=== PATIENT | male | born 1950 | race Caucasian/White ===

== ENCOUNTER → 2018-03-19 15:35 | Outpatient (CLI) | payer MEDICARE, OTHER, SELFPAY ==
--- NOTE | 2018-03-19 | DI.RAD.S_ITS ---
PROCEDURE: XR LUMBAR SPINE 2-3V INDICATIONS: LOW BACK PAIN TECHNIQUE: 2 views of the lumbar spine were acquired. COMPARISON: Located Within [facility], MR, L-SPINE WITHOUT CONTRAST, 11/22/2017, 17:24. FINDINGS: Bones: 5 [id number] vertebrae are present. Mild levoscoliosis. Prior multilevel laminectomy. Grade 1 spondylolisthesis L3-L4 and L4-L5. Multilevel disc degeneration, most notably on moderate at the L5-S1 level. Moderate lower lumbar spine facet joint arthropathy.. No vertebral body compression fractures. No suspicious bony lesions. Soft tissues: Overlying bowel gas pattern is normal. No suspicious soft tissue calcifications. Vascular calcifications indicate atherosclerosis. IMPRESSION: Multilevel degenerative change within the lumbar spine. Dictated by: Erik HEARD Interpreted: Bisi Leblanc MD on 03/19/2018 at 16:00 Approved by: Bisi Leblanc M.D. on 03/19/2018 at 17:11
== END ==
PROVIDERS: Family Provider Family Medicine; PCP Family Medicine; Visit Provider Physician Assistant
DX: M51.37 Other intervertebral disc degeneration, lumbosacral region (principal); M41.9 Scoliosis, unspecified; M43.16 Spondylolisthesis, lumbar region
CPT/HCPCS: 72100

== ENCOUNTER → 2018-11-27 13:14 | Outpatient (REF) | payer MEDICARE, OTHER, SELFPAY ==
[2018-11-27 13:41] LABS: Influenza A and B by PCR Rapid Negative (Negative)
== END ==
LOC: LAB 13:14
PROVIDERS: Family Provider Family Medicine; PCP Family Medicine; Visit Provider Nurse Practitioner Family
DX: R05 Cough (principal)
CPT/HCPCS: 87400

== ENCOUNTER → 2019-03-20 10:12 | Outpatient (CLI) | payer MEDICARE, OTHER, SELFPAY ==
--- NOTE | 2019-03-20 | DI.US.S_ITS ---
PROCEDURE: US ABD AORTA ANEURYSM SCREEN INDICATIONS: ABDOMINAL AORTIC ANEURYSM SCREENING TECHNIQUE: Real time scanning was performed of the aorta and iliac arteries, with image documentation. COMPARISON: [facility], , L-SPINE WITHOUT CONTRAST, 11/22/2017, 17:24. FINDINGS: Aorta: Proximal aortic diameter measures 2.9 cm. Mid-aorta measures 2.7 cm. Distal aortic diameter is 2.2 cm. Mild aortic atherosclerosis is present. Iliac arteries: Right common iliac artery measures 1.6 cm. Left common iliac artery measures 1.6 cm. IMPRESSION: 1. Upper normal sized proximal abdominal aorta without evidence of marjorie aneurysm. 2. Aortic atherosclerosis. Dictated by: Sagar Ervin M.D. on 03/20/2019 at 11:35 Approved by: Sagar Ervin M.D. on 03/20/2019 at 11:37
== END ==
PROVIDERS: Family Provider Family Medicine; PCP Family Medicine; Visit Provider Nurse Practitioner Family
DX: I70.0 Atherosclerosis of aorta (principal)
CPT/HCPCS: 76706

== ENCOUNTER → 2019-04-16 05:59 | Outpatient (CLI) | payer MEDICARE, OTHER, SELFPAY ==
--- NOTE | 2019-04-16 | DI.MRI.S_ITS ---
PROCEDURE: MR LUMBAR SPINE WO CON INDICATIONS: Low back pain TECHNIQUE: Noncontrast sagittal T1 spin echo and T2 fast echo, sagittal STIR, axial T1 and T2 fast spin echo through the lumbar spine. In cases with scoliosis, additional coronal T2 fast spin echo may be performed. COMPARISON: [facility], MR, L-SPINE W&WO CONTRAST, 10/28/2014, 18:16. [facility], CR, XR LUMBAR SPINE 2-3V, 03/19/2018, 15:19. [facility], CR, XR LUMBAR SPINE 2 OR 3 VIEWS, 11/14/2017, 13:18. FINDINGS: Image quality: Excellent. Alignment and Curvature: There is mild L3-L4 and L4-L5 anterolisthesis. There is mild L2-L3 retrolisthesis. There is trace L5-S1 retrolisthesis. Bones: Postsurgical changes compatible with go to-L5 laminectomies. Reactive endplate change is noted adjacent to the L2-L3, L3-L4, L4-L5 and L5-S1 discs. No acute vertebral body compression fractures. Spinal Cord: Conus medullaris terminates at the L1 level. Visualized cord demonstrates normal signal and size. Paraspinous Soft Tissues: No paravertebral masses. Bilateral renal cysts. L1-L2: Loss of disc signal. Mild, diffuse disc bulge. Mild bilateral facet hypertrophy. Mild to moderate narrowing of the central canal. Moderate bilateral neural foraminal narrowing. No neural compression. L2-L3: Loss of disc signal and height. Moderate, diffuse disc bulge. Large central disc protrusion. Moderate to severe facet hypertrophy. Severe narrowing of the central canal with compression of the nerve roots of the cauda equina. Severe bilateral neural foraminal narrowing with compression of the L2 nerve roots. L3-L4: Loss of disc signal. Moderate, diffuse disc bulge. Moderate facet hypertrophy. Mild to moderate narrowing of the central canal. Severe bilateral neural foraminal narrowing with compression of the L3 nerve roots. L4-L5: Loss of the signal. Mild, diffuse disc bulge. Moderate bilateral facet hypertrophy. Mild narrowing of the central canal. Severe bilateral neural foraminal narrowing with compression of the L4 nerve roots. L5-S1: Loss of disc signal. Mild, diffuse disc bulge. Mild facet hypertrophy. No central stenosis. Severe bilateral neural foraminal narrowing with compression of the L5 nerve roots. High intensity zones noted in the annulus compatible with fissures.. IMPRESSION: 1. Status post L2-L5 laminectomies. 2. Grade I L2-L3, L3-L4, L4-L5 and L5-S1 degenerative spondylolisthesis. 3. Multilevel degenerative disc disease. 4. Multilevel facet arthropathy. 5. Severe L2-L3 central canal stenosis. Mild to moderate L1-L2 and L3-L4 central canal narrowing. Mild L4-L5 central canal narrowing. 6. Severe bilateral L2-L3, L3-L4, L4-L5 and L5-S1 neural foraminal narrowing. Moderate bilateral L1-L2 neural foraminal narrowing. 7. Compression of the nerve roots of the cauda equina at the level of the L2-L3 disc secondary to central canal stenosis. 8. Compression of the exiting bilateral L2, L3, L4 and L5 nerve roots secondary to neural foraminal narrowing. Dictated by: Sherry Peralta MD, PhD on 04/16/2019 at 12:20 Approved by: Sherry Peralta MD, PhD on 04/16/2019 at 12:29
== END ==
PROVIDERS: Family Provider Family Medicine; PCP Family Medicine; Visit Provider Physical Medicine & Rehabilitation
DX: M43.16 Spondylolisthesis, lumbar region (principal); M48.061 Spinal stenosis, lumbar region without neurogenic claudication
CPT/HCPCS: 72148

== ENCOUNTER → 2019-09-18 18:11 | Outpatient (CLI) | payer MEDICARE, OTHER, SELFPAY ==
--- NOTE | 2019-09-18 18:14 | DI.RAD.S_ITS ---
PROCEDURE: XR HAND LT MIN 3V INDICATIONS: r/o open fracture TECHNIQUE: 3 views of the hand(s) acquired. COMPARISON: None. FINDINGS: Bones: Second digit bone detail is somewhat obscured on the frontal view by a splint. Question dorsal plate fracture of base of distal phalanx of second finger versus osteophyte. No other fractures or dislocations. Severe first carpometacarpal degenerative change. Carpal bones are normally aligned. No suspicious bony lesions. Soft tissues: No suspicious soft tissue calcifications. IMPRESSION: Question dorsal plate fracture base of distal phalanx of second finger Versus osteophyte. Suggest clinical correlation for area of pain. 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 Dictated by: Braeden Campa M.D. on 09/18/2019 at 20:11 Approved by: Braeden Campa M.D. on 09/18/2019 at 20:14
== END ==
PROVIDERS: Family Provider Family Medicine; PCP Family Medicine; Visit Provider Physician Assistant
DX: S61.211A Laceration without foreign body of left index finger without damage to nail, initial encounter (principal); S56.429A Laceration of extensor muscle, fascia and tendon of unspecified finger at forearm level, initial encounter; S61.209A Unspecified open wound of unspecified finger without damage to nail, initial encounter; M18.12 Unilateral primary osteoarthritis of first carpometacarpal joint, left hand; X58.XXXA Exposure to other specified factors, initial encounter
CPT/HCPCS: 73130

== ENCOUNTER → 2022-04-05 12:53 | Outpatient (CLI) | payer MEDICARE, OTHER, SELFPAY ==
--- NOTE | 2022-04-18 13:47 | DIAB.MNT ---
Initial Diabetes Medical Nutrition Therapy Assessment Name: Mich Watt Date: 04/05/22 Time: 1-230p Dx: Type II Diabetes with peripheral neuropathy Provider: Krystal Mich presents today for initial visit. States he has had DM for 8 years. 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 PMH of HLD, cataracts, HTN, CVD, and neuropathy. Currently 6-8 mo behind in eye exam. No dental visit in 5+ years. Plans to have teeth pulled after receiving tax return. Recent HgA1c 7.8% Has some concerns about constipation and occasional diarrhea. BM q 2-3 days, not painful, is full formed. States he and his have been loving heavy cream in eggs and coffee. Reports he realizes this is not heart healthy, but since his cholesterol has not increased he feels comfortable to continue cream use. Avoiding red meat. Mostly eats chx or fish pro. Diet Recall: 11a: 2eggs with heavy cream, 2 toast with butter on white, coffee with heavy cream ; 1c dry oats with 2/3 fruit cocktail can in syrup 3p: leftovers or piece of cheese 6p: chicken or fish with green beans or cauliflower +/- 1 potato or 4-5c pasta with added sugar or [place] take out 5 x per week q 2-3 weeks with rice and veggies and emmett pa chicken Beverages: water a lot Anthropometrics: Ht: 70.5 Wt: 295.4# last PCP visit Physical Activity: no walking due to knee and back pain Self-Monitoring Blood Glucose: No reading for review today. Reports FBG often 160-170 mg/dL though if he avoids carbs late may wake with 140 mg/dL Diabetes Medications: Metformin 1000mg BID Glipizide 5mg daily Pertinent Labs: 01/2022 hgA1c 7.8% Cholesterol: 130 HDL: 31 L LDL: 54 T H Past Medical History: (Last Updated 09/18/19 @ 18:09 by Nida iLzarraga PA-C) Extensor tendon laceration, finger, open wound Laceration of left index finger Nutrition Rx: Carbohydrates: Meal:45-60g Snack:15-30g Nutrition Diagnosis: - Excessive saturated fat intake r/t preference for heavy cream and butter and stage of change aeb pt report and diet recall - Excessive CHO intake r/t eating out portions, breakfast portions and nutrition knowledge deficit aeb diet recall Intervention: This participant was very receptive. Provided appropriate educational handouts. Discussed the following topics: Completed intake assessment. Discussed barriers to care. BG self-monitoring, how often, and when to check. Suggested checking at different times to evaluate meals Plate Method, impact of macronutrients on blood sugar, meal timing, carbohydrate counting, pairing macronutrients and spreading out carbohydrates for better blood glucose management Recommended servings for carbohydrates at meals and snacks Heart health nutrition Role of physical activity and following provider guidelines for safety Created SMART goals for patient self-care and success. Goals: Buy siracha to flavor food (to reduce eating out cravings) Keep oatmeal to 1c cooked Follow-up: ADILENE CHAVEZ follow-up in 4 weeks for DSME class series in April and 1:1 visit after Lisa Hameed RDN, [facility] Certified Diabetes Care and Teletypist P: [phone] Thank you for this referral
== END ==
PROVIDERS: Family Provider Family Medicine; PCP Family Medicine; Referring Provider Family Medicine; Visit Provider Family Medicine
DX: E11.42 Type 2 diabetes mellitus with diabetic polyneuropathy (principal); Z79.84 Long term (current) use of oral hypoglycemic drugs; Z71.3 Dietary counseling and surveillance
CPT/HCPCS: 97802

== ENCOUNTER → 2022-05-03 09:36 | Outpatient (CLI) | payer MEDICARE, OTHER, SELFPAY ==
--- NOTE | 2022-05-04 17:38 | DIAB.FU ---
Diabetes Education Class Series: Diabetes and Nutrition Name: Mich Watt Date: 05/03/22 Time: [id number] Mian presents for 1 of 3 DSME classes. States he has been enjoying high sat fat cream in foods and coffee. Participated in class with questions and comments. States he does not like tofu and is weary of soy. Discussed this in detail today. Class topics covered: ? Debunk nutrition myths and discuss how to sustain healthy eating long-term through moderation and variety ? Define macronutrients and determine their impact on blood sugars ? Discuss macronutrient pairing, Plate Method, and carb counting ? Review general recommendations for carbohydrates ? Practice label reading ? Discuss the role of fiber in diabetes and provide examples of sources ? Review heart health nutrition: fats, fiber, and sodium ? Determine recommendations for grocery shopping and eating out ? Discuss alcohol recommendations ? Review the role of substitute sugars in diabetes management ? Set SMART goals Goal Set: Walk 15 min 4x per week Follow-up: Diabetes Physiology and Medication Class in one week Lisa Hameed RDN, [facility] Certified Diabetes Care and Information Systems Security Analyst P: [phone] Thank you for this referral
== END ==
PROVIDERS: Family Provider Family Medicine; PCP Family Medicine; Referring Provider Family Medicine; Visit Provider Family Medicine
DX: E11.9 Type 2 diabetes mellitus without complications (principal); Z71.3 Dietary counseling and surveillance
CPT/HCPCS: G0109

== ENCOUNTER → 2022-05-10 09:31 | Outpatient (CLI) | payer MEDICARE, OTHER, SELFPAY ==
--- NOTE | 2022-05-18 13:20 | DIAB.FU ---
Follow-up Diabetes Education Assessment Name: Mich Watt Date: 05/10/22 Time: 709-2015s Mian participated well in class and seemed very receptive. Had many questions and details to discuss with the class. Class topics covered: ? Diabetes pathophysiology ? Discuss different types of diabetes ? Review criteria for diagnosing diabetes ? Review HgA1c measurement and associated blood sugars ? Review blood sugar monitoring safety, technique, and goals ? Discuss ways to reduce complications associated with diabetes, includes microvascular and macrovascular complications ? Review diabetes medications types, action, and side effects ? Health care visits recommended for people with T2DM ? Immunization recommended for people with T2DM ? SMART goals review Follow-up: Diabetes Lifestyle and Ongoing Support Class next week Lisa Hameed RDN, [facility] Certified Diabetes Care and Gear Keeper P: [phone] Thank you for this referral
== END ==
PROVIDERS: Family Provider Family Medicine; PCP Family Medicine; Referring Provider Family Medicine; Visit Provider Family Medicine
DX: E11.9 Type 2 diabetes mellitus without complications (principal); Z71.3 Dietary counseling and surveillance
CPT/HCPCS: G0109

== ENCOUNTER → 2022-05-24 14:00 | Outpatient (CLI) | payer MEDICARE, OTHER, SELFPAY ==
--- NOTE | 2022-06-14 17:31 | DIAB.MNTFU ---
Follow-up Diabetes Medical Nutrition Therapy Assessment Name: Mich Watt Date: 05/24/22 Time: 209-310p Dx: Type II Diabetes Provider: Krystal Pappas presents for follow-up after completing 2/3 DSME classes. Reports reduced snacks and gave up candy completely. Still having 24oz soda or sweet tea with eating out about 2x per month. Not open to d/c this, but open to exploring which is lower in carb. Eating out overall 1-2 x per week. Did buy siracha, as discussed, which has helped reduce eating out since last visit. Has sugar in coffee, unsure of amt. Has reduced pasta portions by more than half. Received tax return, but states he now has to wait on dental appointment. Endorses more veggies. Diet Recall: 0-12: 2c oatmeal with peaches and cream or eggs with cram and ham, cheese 3-4p: bread with peach jam or egg salad or PB or tuna sandwich 8-9p: pro and veggies, no starch or 1c potatoes or 2c pasta Beverages: 2L water daily, coffee with sugar, Anthropometrics: Ht: 70.5 Wt: 280# reported Physical Activity: No program. Considering seated exercises. Self-Monitoring Blood Glucose: None over the last week. States I can feel it when high. Reports it was 140-160 mg/dL fasting historically. Diabetes Medications: Metformin 1000mg BID Glipizide 5mg daily Pertinent Labs: Denies any new labs. 01/2022 hgA1c 7.8% Cholesterol: 130 HDL: 31 L LDL: 54 T H Past Medical History: (Last Updated 09/18/19 @ 18:09 by Nida Lizarraga PA-C) Extensor tendon laceration, finger, open wound Laceration of left index finger Nutrition Rx: Carbohydrates: Meal:45-60g Snack:15-30g Nutrition Diagnosis: - Excessive saturated fat intake r/t preference for heavy cream and butter and stage of change aeb pt report and diet recall- in progress - Excessive CHO intake r/t eating out portions, breakfast portions and nutrition knowledge deficit aeb diet recall - improved/in progress Intervention: This participant was very receptive. Provided appropriate educational handouts. Discussed the following topics: Blood sugar monitoring recs Plate Method, impact of macronutrients on blood sugar, meal timing, carbohydrate counting, pairing macronutrients and spreading out carbohydrates for better blood glucose management Heart health nutrition: fats, fiber, and sodium Eating out and grocery shopping tips Physical activity plan and progress Created SMART goals for patient self-care and success. Goals: Buy siracha to flavor food (to reduce eating out cravings)- met Keep oatmeal to 1c cooked- in progress Check BG- new Measure sugar in coffee- new Choose sweet tea over higher carb soda- new Add protein to oats- new Walk 3 days per week safely- new Follow-up: ADILENE CHAVEZ follow-up in 4 weeks Lisa Hameed RDN, [facility] Certified Diabetes Care and Space Control Agent P: [phone] Thank you for this referral
== END ==
PROVIDERS: Family Provider Family Medicine; PCP Family Medicine; Referring Provider Family Medicine; Visit Provider Family Medicine
DX: E11.9 Type 2 diabetes mellitus without complications (principal); Z79.84 Long term (current) use of oral hypoglycemic drugs; Z71.3 Dietary counseling and surveillance
CPT/HCPCS: 97803